=== PATIENT | female | born 1985 | race Caucasian/White ===

== ENCOUNTER → 2019-09-09 | Outpatient (REF) | payer OTHER ==
[2019-09-12 15:57] LABS: HPV HYBRID CAPTURE II Negative (Negative)
== END ==
LOC: M SFHCWAGY 16:10
PROVIDERS: ATTEND Nurse Practitioner Family
DX: Z12.4 Encounter for screening for malignant neoplasm of cervix (principal); N76.0 Acute vaginitis
CPT/HCPCS: 87624; G0123

== ENCOUNTER 2020-03-08 20:33 | Emergency (ER) | payer OTHER ==
[~2020-03-08] VITALS: Ht 165.1 cm; Wt 70.5 kg
[2020-03-08] MEDS ORDERED: ADDE20CA3 PO (20:38)
[2020-03-08] MEDS ORDERED: LIDOCAINE 2% MDV 20ML VIAL SC ONE (21:15)
[2020-03-08] MEDS ORDERED: AUGMENTIN 875 MG TAB PO ONE (21:15)
[2020-03-08] MEDS ORDERED: AUGM875T28 PO (22:11)
[2020-03-08 22:18] VITALS: BP 121/85
== END 2020-03-08 22:19 | disposition home or self-care (01) ==
LOC: M ED 20:33
DX: S61.051A Open bite of right thumb without damage to nail, initial encounter (principal); W54.0XXA Bitten by dog, initial encounter; Y92.9 Unspecified place or not applicable; S91.351A Open bite, right foot, initial encounter; S81.852A Open bite, left lower leg, initial encounter; Y93.K9 Activity, other involving animal care; Y99.8 Other external cause status

== ENCOUNTER 2022-04-07 01:22 | Emergency (ER) | payer OTHER ==
[~2022-04-07] VITALS: Ht 167.6 cm; Wt 105.3 kg
[~2022-04-07 01:22] MED LIST: ADDE20CA3 PO; AUGM875T28 PO
[2022-04-07] MEDS ORDERED: NS 1,000 ML IV ONE (01:40)
[2022-04-07 01:59] LABS: BASO # 0.1 10^3/uL (0.0-0.2); BASO % 0.8 % (0.0-1.0); EOS # 0.2 10^3/uL (0.0-0.5); EOS % 2.7 % (0.0-3.0); HEMATOCRIT 39.7 % (36.0-47.0); HEMOGLOBIN 13.6 g/dl (12.0-15.5); LYMPH # 1.8 10^3/uL (1.5-5.0); LYMPH % 28.9 % (24.0-44.0); MEAN CORPUSCULAR HEMOGLOBIN 33.4 pg (27.0-33.0); MEAN CORPUSCULAR HGB CONC 34.3 g/dl (32.0-36.5); MEAN CORPUSCULAR VOLUME 97.5 fl (80.0-96.0); MONO # 0.5 10^3/uL (0.0-0.8); NEUTROPHILS # 3.7 10^3/uL (1.5-8.5); NEUTROPHILS % 59.3 % (36.0-66.0); PLATELET COUNT, AUTOMATED 279 10^3/uL (150-450); RED BLOOD COUNT 4.07 10^6/uL (4.00-5.40); WHITE BLOOD COUNT 6.2 10^3/uL (4.0-10.0)
[2022-04-07 02:26] LABS: HCG, SERUM QUALITATIVE NEGATIVE (NEGATIVE)
[2022-04-07 02:27] LABS: RSV AMPLIFICATION NEGATIVE (NEGATIVE)
[2022-04-07 02:32] LABS: ACETAMINOPHEN LEVEL < 2.0 UG/ML (10.0-30.0); ALBUMIN 3.6 GM/DL (3.2-5.2); ALT/SGPT 74 U/L (12-78); BILIRUBIN,DIRECT 0.2 MG/DL (0.0-0.2); BILIRUBIN,TOTAL 0.9 MG/DL (0.2-1.0); BLOOD UREA NITROGEN 3 MG/DL (7-18); CARBON DIOXIDE LEVEL 27 MEQ/L (21-32); CHLORIDE LEVEL 109 MEQ/L (98-107); CREATININE FOR GFR 0.85 MG/DL (0.55-1.30); ETHYL ALCOHOL (ETHANOL) 0.171 % (0.000-0.010); GLOMERULAR FILTRATION RATE > 60.0 (>60); GLUCOSE, FASTING 91 MG/DL (70-100); POTASSIUM SERUM 3.6 MEQ/L (3.5-5.1); SALICYLATE LEVEL < 1.7 MG/DL (5.0-30.0); SODIUM LEVEL 144 MEQ/L (136-145); TOTAL PROTEIN 7.1 GM/DL (6.4-8.2)
[2022-04-07 02:34] LABS: ABG BASE EXCESS -2.1 (-2.0-2.0); ABG HCO3 23.3 MEQ/L (22.0-26.0); ABG PARTIAL PRESSURE CO2 42.1 mmHg (35.0-45.0); ABG STANDARD HCO3 22.8 MEQ/L (22.0-26.0); ABG TOTAL CO2 24.6 MEQ/L (22.0-29.0); ABG pH (ARTERIAL) 7.361 UNITS (7.350-7.450)
[2022-04-07 04:51] LABS: AMPHETAMINES LEVEL URINE POSITIVE (NEGATIVE); BARBITURATES URINE NEGATIVE (NEGATIVE); BENZODIAZEPINES URINE POSITIVE (NEGATIVE); CANNABINOIDS URINE NEGATIVE (NEGATIVE); COCAINE METABOLITE URINE NEGATIVE (NEGATIVE); METHADONE URINE NEGATIVE (NEGATIVE); OPIATES URINE NEGATIVE (NEGATIVE); PHENCYCLIDINE URINE NEGATIVE (NEGATIVE)
[2022-04-07 13:30] VITALS: BP 133/67
== END 2022-04-07 14:28 | disposition home or self-care (01) ==
LOC: M ED 01:22
DX: F10.929 Alcohol use, unspecified with intoxication, unspecified (principal); M50.21 Other cervical disc displacement, high cervical region; R94.31 Abnormal electrocardiogram [ECG] [EKG]; F41.9 Anxiety disorder, unspecified; F32.A Depression, unspecified; Z63.0 Problems in relationship with spouse or partner

== ENCOUNTER 2022-04-11 16:39 | Emergency (ER) | payer OTHER ==
[~2022-04-11] VITALS: Ht 167.6 cm; Wt 95.5 kg
[2022-04-11] MEDS ORDERED: MIRE1IUD IU (17:02)
[2022-04-11] MEDS ORDERED: traMADol 50 MG TAB PO ONE (21:10)
[2022-04-11] MEDS ORDERED: methocarbamoL 750 MG TAB PO ONE (21:10)
[2022-04-11] MEDS ORDERED: METH-1165 PO (21:17)
[2022-04-11] MEDS ORDERED: TRAM50TA2 PO (21:17)
[2022-04-11 21:46] VITALS: BP 150/88
== END 2022-04-11 21:47 | disposition home or self-care (01) ==
LOC: M ED 16:39
DX: M54.2 Cervicalgia (principal); M79.601 Pain in right arm; G81.91 Hemiplegia, unspecified affecting right dominant side; F17.200 Nicotine dependence, unspecified, uncomplicated; V49.40XA Driver injured in collision with unspecified motor vehicles in traffic accident, initial encounter; Y92.9 Unspecified place or not applicable; Y93.9 Activity, unspecified; Y99.9 Unspecified external cause status